=== PATIENT | male | born 1995 | race Caucasian/White ===

== ENCOUNTER 2018-07-28 06:30 | Day surgery (SDC) | payer MEDICARE ==
[~2018-07-28] VITALS: Ht 182.9 cm; Wt 70.5 kg
[~2018-07-28 06:30] MED LIST: RINGERS SOLUTION,LACTATED 1,000 ML IV ONE
[2018-07-28] MEDS ORDERED: SUCCINYLCHOLINE CHLORIDE 20 MG/ML 10 ML VIAL IVP ONE (06:31)
[2018-07-28] MEDS ORDERED: PROPOFOL 1% 20 ML VIAL IVP ONE (06:31)
[2018-07-28] MEDS ORDERED: MIDAZOLAM HCL 2 MG/2 ML VIAL IVP ONE (06:31)
[2018-07-28] MEDS ORDERED: LIDOCAINE/PF 2% 5 ML VIAL IM ONE (06:31)
[2018-07-28] MEDS ORDERED: FentaNYL CITRATE-PF 100 MCG/2 ML VIAL IVP ONE (06:31)
[2018-07-28] MEDS ORDERED: ONDANSETRON HCL 4 MG/2 ML VIAL IVP ONE (06:31)
[2018-07-28] MEDS ORDERED: KETOROLAC TROMETHAMINE 60 MG/2 ML VIAL IM ONE (06:31)
[2018-07-28] MEDS ORDERED: 0.9% SODIUM CHLORIDE 10 ML VIAL IVP ONE (06:31)
[2018-07-28] MEDS ORDERED: BUPIVACAINE HCL/PF 0.25% 30 ML VIAL ONE (07:01)
[2018-07-28] MEDS ORDERED: ACETAMINOPHEN 1000 MG/ISO-OSM 100 ML IV ONE ×2 (07:21→07:30)
[2018-07-28] MEDS ORDERED: FentaNYL CITRATE-PF 100 MCG/2 ML VIAL IVP PRN (07:30)
[2018-07-28] MEDS ORDERED: MEPERIDINE-PF 25 MG/ML VIAL IVP PRN (07:30)
[2018-07-28] MEDS ORDERED: HYDROmorphone 2 MG/ML SYRINGE IVP PRN (07:30)
[2018-07-28] MEDS ORDERED: CeFAZolin 2 GM/DEXTROSE 50 ML IV ONE (08:00)
[2018-07-28] MEDS ORDERED: OXYGEN THERAPY IH SCH (08:00)
== END 2018-07-28 10:50 | disposition home or self-care (01) ==
LOC: SURGERY 06:30
PROVIDERS: ATTEND Orthopaedic Surgery
DX: T84.197A Other mechanical complication of internal fixation device of bone of left lower leg, initial encounter (principal); Y83.8 Other surgical procedures as the cause of abnormal reaction of the patient, or of later complication, without mention of misadventure at the time of the procedure
CPT/HCPCS: 20680; 88300; J0131; J0330; J0690; J1885; J2250; J2405; J2704; J3010; J3490 ×2; J7120